=== PATIENT | female | born 1985 | race Hispanic/Latino ===

== ENCOUNTER 2017-09-07 10:29 | Emergency (ER) | payer OTHER ==
[~2017-09-07] VITALS: Ht 157.5 cm; Wt 78.9 kg
--- NOTE | 2017-09-07 11:52 | ED GI/GU/ABDOMINAL COMPLAINT ---
History of Present Illness General Chief Complaint: General Adult Stated Complaint: SENT BY PEYTON SCHMIDT FOR RECHECK OF HCG LEVELS Source: patient Exam Limitations: no limitations Vital Signs & Intake/Output Vital Signs & Intake/Output Vital Signs Date Time Temp Pulse Resp B/P B/P Pulse O2 O2 Flow FiO2 Mean Ox Delivery Rate 09/07 1222 97.1 88 15 109/66 99 Room Air Room Air ED Intake and Output 09/08 0000 09/07 1200 Intake Total Output Total Balance Patient 174 lb Weight Weight Reported by Patient Measurement Method Allergies Coded Allergies: MDX - Codeine (CODEINE) (Intermediate, "PASSED OUT" 12/03/10) Reconcile Medications No Known Home Medications Triage Note: TRIAGE: 31 Y/O FEMALE PRESENTS FOR RECHECK OF HCG LEVELS. REPORTS MINIMAL CRAMPING. Triage Nurses Notes Reviewed? yes ? n Is pt currently ? No Onset: Abrupt Duration: day(s):, constant Timing: recent history No Modifying Factors: none HPI: 31-year-old female currently with an unknown due day or time frame that was seen here the other day for vaginal bleeding and had a low beta hCG titer comes back into the emergency room today for a repeat blood test. She denies any fever chills vomiting. She reports a very minimal amount of cramping. She reports that she's had some vaginal bleeding intermittently for about a month. (Ayo Wright) Past History Travel History Traveled to [place] past 21 day No Medical History Any Pertinent Medical History? see below for history Neurological: migraine EENT: NONE Cardiovascular: NONE Respiratory: NONE Gastrointestinal: NONE Hepatic: NONE Renal: NONE Musculoskeletal: NONE Psychiatric: NONE Endocrine: NONE Blood Disorders: NONE Cancer(s): NONE CRYPTOLOGIC SUPPORT SPECIALIST/Reproductive: NONE Surgical History Surgical History: N Psychosocial History What is your primary language German Tobacco Use: Never used ETOH Use: occasional use Illicit Drug Use: denies illicit drug use Family History Hx Contributory? No (Ayo Wright) Review of Systems Review of Systems Constitutional: Reports: no symptoms. EENTM: Reports: no symptoms. Respiratory: Reports: no symptoms. Cardiovascular: Reports: no symptoms. GI: Reports: no symptoms. Genitourinary: Reports: see HPI. Musculoskeletal: Reports: no symptoms. Skin: Reports: no symptoms. Neurological/Psychological: Reports: no symptoms. Hematologic/Endocrine: Reports: see HPI. Immunologic/Allergic: Reports: no symptoms. All Other Systems: Reviewed and Negative (Ayo Wright) Physical Exam Physical Exam General Appearance: well developed/nourished, alert, awake Head: atraumatic Eyes: Bilateral: normal appearance. Ears, Nose, Throat, Mouth: moist mucous membrane Neck: normal inspection Respiratory: no respiratory distress Gastrointestinal: soft, non-tender Back: normal inspection Extremities: normal range of motion Neurologic/Psych: awake, alert Skin: intact, normal color Core Measures ACS in differential dx? No Sepsis Present: No Sepsis Focused Exam Completed? No (Ayo Wright) Progress Differential Diagnosis: ovarian cyst, ovarian torsion, threatened AB, UTI/pyelo Plan of Care: Laboratory Tests 09/07/17 1055: Beta HCG, Quant 272.7 Initial ED EKG: none (Ayo Wright) Departure Departure Disposition: HOME OR SELF CARE Condition: Stable Clinical Impression Primary Impression: Spontaneous miscarriage Referrals: Patient Has No Primary Care Dr (PCP/Family) Additional Instructions: Follow-up with your MEMBERSHIP COORDINATOR doctor next week. Return if any concerns worsening symptoms. Please go over all results of today's visit with your primary care doctor. Contact your primary care doctor to let them know you were here in the emergency room. There may be nonspecific findings which may not be related to your visit today here in the emergency room but may require further evaluation and chronic monitoring by your primary care doctor. If you had a laceration today the chance of foreign body always remains. You should follow-up with your primary care doctor for recheck in 3-5 days for a wound check. If you had an x-ray done there is a chance that a fracture could have been missed on initial read and you should follow-up with your primary care doctor for repeat x-rays if symptoms persist. If your blood pressure was elevated here in the emergency room please have rechecked by [facility] primary care doctor within the next 48. If you were prescribed a narcotic here in the emergency room or any type of controlled substances you're not allowed to drive while taking this medication or operate any type of heavy machinery. Narcotics can make you feel lightheaded dizziness nausea and can cause constipation. You may need to warehouse picker a stool softener. Thank you for choosing emergency room. Please return to the emergency room immediately if you have any other concerns worsening of symptoms. Departure Forms: Customer Survey General Discharge Information Prescriptions: Current Visit Scripts No Known Home Medications Comments 09/07/2017 12:45:07 PM Follow-up with MEMBERSHIP COORDINATOR doctor next week. Patient is clinically stable. No acute abdomen. Understands and agrees the plan of care. (Ayo Wright) PA/DIAGNOSTIC RADIOLOGIST Co-Sign Statement Statement: ED Attending supervision documentation- [] I saw and evaluated the patient. I have also reviewed all the pertinent lab results and diagnostic results. I agree with the findings and the plan of care as documented in the PA's/DIAGNOSTIC RADIOLOGIST's documentation. [X] I have reviewed the ED Record and agree with the PA's/DIAGNOSTIC RADIOLOGIST's documentation. [] Additions or exceptions (if any) to the PAs/DIAGNOSTIC RADIOLOGIST's note and plan are summarized below: [] (Camille BEDOYA,[facility])
[2017-09-07 12:22] VITALS: BP 109/66
== END 2017-09-07 12:24 ==
LOC: ERH 10:29
DX: O03.9 Complete or unspecified spontaneous abortion without complication (principal)